=== PATIENT | female | born 1955 | race Caucasian/White ===

== ENCOUNTER → 2017-02-19 | Day surgery (SDC) | payer MEDICARE, BC ==
[~2017-02-19] VITALS: Ht 157.5 cm; Wt 65.6 kg
[~2017-02-19] MED LIST: CALCIUM MAGNES1 EAC1 PO; CALCIUM WITH V1 EAC1 PO; CIPRO500 MG PO; CRANBERRY200 MG PO; GLUCOSAMINE CH1 EAC6 PO; VITAMIN D1000 UNI1 PO; VITAMIN D1000 UNIT PO
--- NOTE | ~2017-02-19 | OR ---
PATIENT'S NAME: LEONID FLORES [facility] AGE: 61 Y [address] ROOM: [place] [address] LOCATION: [facility] [place] ADMIT DATE: 02/19/2017 OR/Procedure Report DISCHARGE DATE: FAMILY PHYSICIAN: JARRELL RING MD ATTENDING PHYSICIAN: Sandrita Martines SURGEON: Sandrita Martines MD BOTTOM BLEACHER: DATE OF PROCEDURE: 02/19/2017 PREOPERATIVE DIAGNOSIS: Right ureteral obstruction with right ureteral stent. POSTOPERATIVE DIAGNOSIS: Right ureteral obstruction with right ureteral stent. OPERATION: 1. Cystoscopy and removal of stent. 2. Cystoscopy and retrograde pyelograms. 3. Cystoscopy insertion of stent. [employer] Percuflex 22 cm 6- [place]. DESCRIPTION OF PROCEDURE: After adequate anesthesia, she was prepped and draped. The cystoscope was inserted. The bladder was examined and it was normal. With endoscopic forceps, the stent was removed. The yellow open-ended catheter was inserted and contrast media was injected for the retrograde pyelograms. A guidewire was passed. Over the guidewire, a 6-[place] 22 cm [employer] Percuflex stent was placed that coiled nicely in the renal pelvis and other in the bladder. She was then accompanied to recovery area. RETROGRADE PYELOGRAM REPORT: Initial film showed degenerative changes of the lumbar spine. After injection of contrast media, the ureter was deviated medially then the mid and proximal ureter was normal. There was pyelocaliectasis. There was a calcific density in the area junction of the middle and lower thirds, but this was outside the ureter. IMPRESSION: Pyelocaliectasis, right. SANDRITA MARTINES MD EKL/modl PATIENT'S NAME: MIRA FLORESLY Meredith [facility] AGE: 61 Y [address] ROOM: [place] [address] LOCATION: [facility] [place] ADMIT DATE: 02/19/2017 OR/Procedure Report DISCHARGE DATE: FAMILY PHYSICIAN: JARRELL RING MD ATTENDING PHYSICIAN: Sandrita Martines /[id number] d: 02/19/17 0739 t: 02/20/17 0441, OPERATIVE SUMMARY
--- NOTE | ~2017-02-19 | HP ---
PATIENT'S NAME: LEONID WARD [facility] AGE: 61 Y [address] ROOM: [place] [address] LOCATION: [facility] [place] ADMIT DATE: 02/19/2017 History & Physical DISCHARGE DATE: FAMILY PHYSICIAN: JARRELL RING MD ATTENDING PHYSICIAN: Sandrita Martines DATE OF SERVICE: HISTORY OF PRESENT ILLNESS: Leonid Ward is a 61-year-old white female, who was well in good health until up to 2010 at which time she was evaluated for abdominal pain and had an appendectomy. At that time, she was found to have adenocarcinoma of the colon and she subsequently had a colon resection. She then received chemotherapy and radiation therapy to the tumor in the lower sigmoid area. Since then, her CEAs have all been normal, and she has had no systemic symptoms such as weight loss, anorexia, bone pain, or other symptoms of metastatic disease. During her followup evaluation, she was found to have a large stone in the right distal ureter with hydroureteronephrosis. In February 2014, the stone was removed, but her followup studies continued to show hydronephrosis with a markedly scarred distal right ureter, and since then, she has had a right ureteral stent. She is seen now for stent change. She also has had problems with recurrent bouts of cystitis, and her last infection was in September 2016. PAST MEDICAL HISTORY: Illnesses: 1. Blindness. 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 4. Hydroureteronephrosis. PAST SURGICAL HISTORY: Operations: 1. Appendectomy. 2. Colon resection. 3. Total vaginal hysterectomy. PATIENT'S NAME: LEONID WARD [facility] AGE: 61 Y [address] ROOM: [place], [place] [address] LOCATION: [facility] [place] ADMIT DATE: 02/19/2017 History & Physical DISCHARGE DATE: FAMILY PHYSICIAN: JARRELL RING MD ATTENDING PHYSICIAN: Sandrita Martines 4. As above. ALLERGIES: PERCOCET, SULFA. PHYSICAL EXAMINATION: GENERAL: A well-developed, well-nourished female. CHEST: Clear to auscultation. HEART: Normal sinus rhythm. ABDOMEN: Soft with no palpable masses or organomegaly. PELVIC AND RECTAL: Deferred until cystoscopy. EXTREMITIES: Good peripheral pulses. No edema. IMPRESSION: 1. Hydronephrosis, right kidney. 2. Right ureteral obstruction secondary to radiation therapy. 3. Right ureteral stent. 4. Cystitis, recurrent. PLAN: As above. SANDRITA K MD BETHEL MARTINES/joni /[id number] D: [id number] T: [id number] HISTORY & PHYSICAL
[2017-02-19 06:24] LABS: BASOPHIL % 0.5 %; EOSINOPHIL # 0.1 K/uL (0.0-0.5); EOSINOPHIL % 1.4 %; HEMATOCRIT 39.1 % (33.0-46.0); HEMOGLOBIN 12.6 g/dL (10.0-15.0); IMMATURE GRANULOCYTE % 0.5 %; LYMPHOCYTE % 24.6 %; MCH 28.1 pg (27.0-34.0); MCHC 32.2 gm/dL (32.0-36.5); MCV 87.3 fl (83.0-98.0); MONOCYTE # 0.4 K/uL (0.0-1.0); MPV 10.2 fl (9.4-12.4); NEUTROPHIL # (ANC) 2.7 K/uL (1.8-7.8); NRBC % 0 /100WBC (0-0.00); PLATELET COUNT 192 K/uL (150-450); RBC 4.48 M/uL (3.50-5.50); RDW-CV 13.1 % (11.9-14.6); WBC 4.2 K/uL (4.0-11.0)
[2017-02-19 06:44] LABS: ALBUMIN 3.5 gm/dL (3.5-5.0); ANION GAP 10.7 (10.0-19.0); CALCIUM 9.3 mg/dL (8.5-10.5); POTASSIUM 3.7 mMol/L (3.7-5.1); TOTAL BILIRUBIN 0.3 mg/dL (0.0-1.5); TOTAL PROTEIN 7.4 g/dL (6.0-8.4)
== END | disposition disaster alternative care site (69) ==
LOC: GPOC 02-14 11:00 → GSDC 05:26
PROVIDERS: Urology
PROC: 0T768DZ Dilation of Right Ureter with Intraluminal Device, Via Natural or Artificial Opening Endoscopic (ICD-10-PCS; principal; 2017-02-19)
PROC: 0TP98DZ Removal of Intraluminal Device from Ureter, Via Natural or Artificial Opening Endoscopic (ICD-10-PCS; 2017-02-19)
PROC: BT1DZZZ Fluoroscopy of Right Kidney, Ureter and Bladder (ICD-10-PCS; 2017-02-19)
DX: N13.1 Hydronephrosis with ureteral stricture, not elsewhere classified (principal); Z46.6 Encounter for fitting and adjustment of urinary device; N30.80 Other cystitis without hematuria; Z88.2 Allergy status to sulfonamides; Z88.8 Allergy status to other drugs, medicaments and biological substances; Z90.49 Acquired absence of other specified parts of digestive tract; Z90.710 Acquired absence of both cervix and uterus
CPT/HCPCS: C1769; J0744; J7120